=== PATIENT | female | born 1960 | race Caucasian/White ===

== ENCOUNTER 2022-08-28 15:21 | Emergency (ER) | payer OTHER ==
[~2022-08-28] VITALS: Ht 167.6 cm; Wt 49.9 kg
--- NOTE | 2022-08-28 15:30 | NUR ---
FLAQUITA ([facility]) [phone]
--- NOTE | 2022-08-28 15:40 | NUR ---
ABBY MEDRANO "From Home Seizure-Hx of. Post ictal now. Ran out of meds 2d ago"
[2022-08-28] MEDS: IV NS 0.9% 1,000 ML BAG IV ONE (16:00)
--- NOTE | 2022-08-28 16:05 | NUR ---
urine sample obtained sent to lab
[2022-08-28 16:07] LABS: BASOPHILS # (AUTO) 0.1 K/uL (0.0-0.2); BASOPHILS % (AUTO) 0.6 % (0.0-2.0); EOSINOPHILS % (AUTO) 0.6 % (0.0-6.0); HEMATOCRIT 35 % (33-45); HEMOGLOBIN 11.2 g/dL (11.5-14.8); LYMPHOCYTES % (AUTO) 29.6 % (20.0-44.0); MEAN CORPUSCULAR HGB CONC 32 g/dl (31.0-36.0); MEAN CORPUSCULAR VOLUME 95 fL (82-100); MONOCYTES # (AUTO) 0.7 K/uL (0.1-1.30); MONOCYTES % (AUTO) 6.7 % (2.0-12.0); NEUTROPHILS # (AUTO) 6.3 K/uL (1.8-8.9); NEUTROPHILS % (AUTO) 62.5 % (43.0-81.0); PLATELET COUNT (AUTO) 74 K/uL (150-450); RED BLOOD CELL COUNT(AUTO) 3.62 MIL/uL (4.0-5.2); WHITE BLOOD COUNT (AUTO) 10.1 K/uL (4.3-11.0)
[2022-08-28 16:29] LABS: ALBUMIN 3.4 g/dL (3.4-5.0); BILIRUBIN,DIRECT 0.5 mg/dL (0.0-0.2); CALCIUM, SERUM 8.4 mg/dL (8.5-10.1); CREATININE 0.5 mg/dL (0.6-1.3); POTASSIUM 3.3 mmol/L (3.5-5.1); TOTAL PROTEIN, SERUM 6.6 g/dL (6.4-8.2)
[2022-08-28 16:53] LABS: BILIRUBIN,URINE NEGATIVE (NEGATIVE); COLOR,URINE YELLOW (YELLOW); LEUKOCYTE ESTERASE ,URINE NEGATIVE (NEGATIVE); NITRITE, URINE POSITIVE (NEGATIVE); PH,URINE 6.5 (5.0-8.0); PROTEIN,URINE 2+ mg/dl (NEGATIVE); UGLUCOSE NEGATIVE (NEGATIVE)
[2022-08-28] MEDS: LEVETIRACETAM (500MG) 1,000 MG in IV NS 0.9% 100 ML IV ONE (17:00)
[2022-08-28 18:09] LABS: BACTERIA,URINE 4+ /HPF (None Seen); SQUAMOUS EPITHELIAL CELL,UR 0-2 /HPF (None Seen); WBC,URINE 0-2 /HPF (0-3)
[2022-08-28] MEDS ORDERED: LEVE500T9 PO (20:32)
--- NOTE | 2022-08-28 20:35 | NUR ---
CALLED [facility] ETA 90 MINUTES
[2022-08-28] MEDS ORDERED: POTASSIUM CHLORIDE 20 MEQ TAB.PRT.SR PO ONE (22:41)
[2022-08-28] MEDS: POTASSIUM CHLORIDE 20 MEQ TAB.PRT.SR PO ONE (22:44)
[2022-08-28 22:46] LABS: EOSINOPHILS % (MANUAL) 1 % (0-4); LYMPHOCYTES % (MANUAL) 20 % (16-48); MONOCYTES % (MANUAL) 4 % (0-11.0); NEUTROPHILS % (MANUAL) 75 (42-76)
--- NOTE | 2022-08-28 22:59 | NUR ---
[facility] 350 AT BEDSIDE FOR PT TRANSPORT BACK TO HER RESIDENCE. PT IS IN STABLE CONDITION. ACI AND RX GIVEN TO PT.
[2022-08-28 23:02] VITALS: BP 160/74
[2022-08-28] MEDS ORDERED: ZONI100C31 PO (23:08)
--- NOTE | 2022-08-28 23:08 | NUR ---
PT'S FLAQUITA WAS NOTIFIED THAT THE PT IS ON HER WAY HOME ON AN AMBULANCE.
== END 2022-08-28 23:03 | disposition home or self-care (01) ==
LOC: ER 15:27
DX: G40.909 Epilepsy, unspecified, not intractable, without status epilepticus (principal); F10.129 Alcohol abuse with intoxication, unspecified; Z79.899 Other long term (current) drug therapy; Y90.8 Blood alcohol level of 240 mg/100 ml or more
CPT/HCPCS: 99284; 96365; 96361; 93005; 85025; 80048; 87086; 80076; 85007; 81001; 36415; 80320; 80307; J7030 ×2; J1953; G0480